=== PATIENT | female | born 1990 | race Caucasian/White ===

== ENCOUNTER 2018-11-18 17:59 | Emergency (ER) | payer OTHER, MEDICAID ==
[~2018-11-18] VITALS: Ht 149.9 cm; Wt 85.7 kg
[2018-11-18] MEDS ORDERED: IBUPROFEN 600600 M1 PO (18:49)
[2018-11-18] MEDS ORDERED: AMOXICILLIN 50500 MG PO (18:49)
[2018-11-18 18:53] LABS: INFLUENZA A ANTIGEN None Detected (None Detect); INFLUENZA B ANTIGEN None Detected (None Detect)
[2018-11-18 19:02] VITALS: BP 133/82
== END 2018-11-18 19:03 | disposition home or self-care (01) ==
LOC: M.ERS 17:59
PROVIDERS: Physician Assistant
DX: J02.0 Streptococcal pharyngitis (principal)